=== PATIENT | male | born 2000 | race Caucasian/White ===

== ENCOUNTER 2020-08-02 23:56 | Emergency (ER) | payer OTHER, SELFPAY ==
--- NOTE | ~2020-08-02 | XR_ITS ---
EXAMINATION: XR ANKLE, LEFT CLINICAL INFORMATION: Trauma COMPARISON: None TECHNIQUE: AP, lateral, and mortise views of the left ankle. FINDINGS: Obliquely oriented distal fibular fracture with one cortex width lateral displacement. No additional fractures. There is, however, widening of the medial clear space. Diffuse soft tissue swelling present about the ankle. XR/XR ankle LT min 3V IMPRESSION: Obliquely oriented distal fibular fracture, a by widening of the medial clear space. This would classify as a Lauge-Sibley SER stage IV / Pelaez B stage IV ankle fracture.
[2020-08-03] VITALS: BP 112/63; PULSE 86; RESP 18; TEMP 36.9; O2SAT 95; BMI 23.0
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
[2020-08-03] MEDS: Ibuprofen 600 MG TABLET PO (00:58)
--- NOTE | 2020-08-03 01:02 | PC.NURSE ---
SPLINT PLACED BY DR. MÓNICA COLLAZO WITH STIRRUP +CMS TO TOES.
== END 2020-08-03 01:18 | disposition home or self-care (01) ==
PROVIDERS: Emergency Provider Internal Medicine; PCP Physician Assistant Medical
DX: S82.892A Other fracture of left lower leg, initial encounter for closed fracture (principal); V18.0XXA Pedal cycle driver injured in noncollision transport accident in nontraffic accident, initial encounter; Y93.55 Activity, bike riding; Y92.414 Local residential or business street as the place of occurrence of the external cause; Y99.8 Other external cause status
CPT/HCPCS: 29515; 73610; 99283; 99284